=== PATIENT | female | born 1970 | race African-American/Black ===

== ENCOUNTER 2019-08-11 19:51 | Emergency (ER) | payer OTHER ==
[~2019-08-11] VITALS: Ht 167.6 cm; Wt 147.0 kg
[2019-08-11] MEDS ORDERED: METFORMIN HCL500 M3 PO (20:03)
[2019-08-11] MEDS ORDERED: LISINOPRIL2.5 MG PO (20:03)
[2019-08-11] MEDS ORDERED: FUROSEMIDE 20 M20 MG PO (20:04)
[2019-08-11 20:33] LABS: URINE BILIRUBIN NEGATIVE (Negative); URINE BLOOD TRACE (Negative); URINE CLARITY CLEAR; URINE COLOR YELLOW; URINE GLUCOSE-RANDOM NEGATIVE (Negative); URINE KETONES NEGATIVE (Negative); URINE LEUKOCYTES-REFLEX NEGATIVE (Negative); URINE NITRITE-REFLEX NEGATIVE (Negative); URINE PROTEIN 2+ (Negative); URINE SPECIFIC GRAVITY 1.025 (1.005-1.030); URINE UROBILINOGEN 0.2 E.U./dl (0.2-1.0)
[2019-08-11 20:40] LABS: BACTERIA-REFLEX 1-9 Few /HPF (None Seen); CRYSTALS None Seen /LPF (None Seen); HYALINE CASTS 0-3 Few /LPF (None Seen); SQUAMOUS 0-3 Few /LPF (0-3); URINE RBC 0-2 Rare /HPF (0-2); URINE WBC-REFLEX 0-5 Rare /HPF (0-5)
[2019-08-11 20:46] LABS: ABSOLUTE EOSINOPHILS 0.1 thou/uL (0.0-0.7); ABSOLUTE LYMPHOCYTES 2.5 thou/uL (0.8-5.3); ABSOLUTE MONOCYTES 0.5 thou/uL (0.0-1.2); ABSOLUTE NEUTROPHILS 5.4 thou/uL (1.6-8.1); BASOPHILS 0.5 %; EOSINOPHILS 1.7 %; HEMOGLOBIN 12.6 gm/dL (12.0-15.0); LYMPHOCYTES 29.1 %; MCH 25.8 pg (26.0-34.0); MCHC 32.4 g/dL (28.0-37.0); MCV 79.7 fL (80.0-100.0); MONOCYTES 6.2 %; MPV 9.4 fl. (7.2-11.1); NUCLEATED RBCS 0 /100WBC; PLATELET COUNT* 215 thou/uL (150-400); POLYS 62.5 %; RBC 4.89 mil/uL (4.20-5.00); RDW-CV 15.4 % (10.5-14.5); WBC 8.6 thou/uL (4.0-11.0)
[2019-08-11 20:51] LABS: CALCIUM 9.7 mg/dL (8.5-10.1); CREATININE 1.6 mg/dL (0.6-1.3); POTASSIUM 4.1 mmol/L (3.5-5.1)
[2019-08-11 20:55] LABS: ALBUMIN 3.7 g/dL (3.4-5.0); TOTAL BILIRUBIN 0.5 mg/dL (<0.1-1.0)
[2019-08-11] MEDS ORDERED: HYDROCODON-ACE1 EAC7 PO (21:53)
[2019-08-11] MEDS ORDERED: ZOFRAN ODT4 MG PO (21:53)
[2019-08-11] MEDS ORDERED: TORADOL 10 MG T10 MG PO (21:53)
[2019-08-11 22:04] VITALS: BP 124/70
== END 2019-08-11 22:04 | disposition home or self-care (01) ==
LOC: M.ERS 19:51
PROVIDERS: Personal Emergency Response Attendant
DX: N23 Unspecified renal colic (principal); Z90.49 Acquired absence of other specified parts of digestive tract; Z98.890 Other specified postprocedural states; Z88.0 Allergy status to penicillin

== ENCOUNTER 2020-07-14 12:23 | Emergency (ER) | payer OTHER ==
[~2020-07-14] VITALS: Ht 167.6 cm; Wt 146.5 kg
[~2020-07-14 12:23] MED LIST: FUROSEMIDE 20 M20 MG PO; HYDROCODON-ACE1 EAC7 PO; LISINOPRIL2.5 MG PO; METFORMIN HCL500 M3 PO; TORADOL 10 MG T10 MG PO; ZOFRAN ODT4 MG PO
[2020-07-14] MEDS ORDERED: VOLTAREN GEL 1100 G1 TOP (13:38)
[2020-07-14] MEDS ORDERED: NORCO5 PO (13:38)
[2020-07-14 14:12] VITALS: BP 141/65
== END 2020-07-14 14:14 | disposition home or self-care (01) ==
LOC: M.ERS 12:23
DX: S92.244A Nondisplaced fracture of medial cuneiform of right foot, initial encounter for closed fracture (principal); Z90.49 Acquired absence of other specified parts of digestive tract; Z98.890 Other specified postprocedural states; Z79.899 Other long term (current) drug therapy; Z88.0 Allergy status to penicillin; X58.XXXA Exposure to other specified factors, initial encounter; Y93.89 Activity, other specified; Y92.89 Other specified places as the place of occurrence of the external cause; Y99.8 Other external cause status

== ENCOUNTER 2020-09-06 02:54 | Observation (INO) | payer OTHER ==
[~2020-09-06] VITALS: Ht 167.6 cm; Wt 156.5 kg
[~2020-09-06 02:54] MED LIST changes: -LISINOPRIL2.5 MG PO; +LISINOPRIL20 MG PO; +NORCO5 PO; +VOLTAREN GEL 1100 G1 TOP
[2020-09-06 02:59] VITALS: BP 154/91
[2020-09-06] MEDS ORDERED: LORATIDINE 10 M10 M1 PO (03:02)
[2020-09-06] MEDS ORDERED: VITAMIN D-40010 MCG (03:03)
[2020-09-06] MEDS ORDERED: PROTONIX 20 MG20 MG PO (03:05)
[2020-09-06 04:29] LABS: HEMATOCRIT 37.6 % (37.0-47.0); HEMOGLOBIN 12.3 gm/dL (12.0-15.0); MCH 26.2 pg (26.0-34.0); MCHC 32.6 g/dL (28.0-37.0); MCV 80.4 fL (80.0-100.0); MPV 8.7 fl. (7.2-11.1); RBC 4.68 mil/uL (4.20-5.00); RDW-CV 15.3 % (10.5-14.5); WBC 9.7 thou/uL (4.0-11.0)
[2020-09-06 04:41] LABS: CALCIUM 9.9 mg/dL (8.5-10.1); CREATININE 1.3 mg/dL (0.6-1.3); POTASSIUM 3.8 mmol/L (3.5-5.1)
[2020-09-06 04:47] LABS: ALBUMIN 3.5 g/dL (3.4-5.0); TOTAL BILIRUBIN 0.5 mg/dL (<0.1-1.0); TOTAL PROTEIN 8.5 g/dL (6.4-8.2)
[2020-09-06 07:54] VITALS: BP 146/72
[2020-09-06 08:00] VITALS: BP 146/72
--- NOTE | 2020-09-06 09:20 | EKG ---
[place] [address] ELECTROCARDIOGRAM REPORT Name: BRANDIEYONY Ch Room: [address]#: [id number] Admission: 09/06/20 Attend Phys: Polly Capellan MD Discharge: Date of : 68 Date of Service: 09/06/20 0432 Report #: [id number] THIS REPORT FOR: //name// [facility] ED Test Date: 2020-09-06 Test Time: 04:32:43 Pat Name: YONY DIEGO Department: Room: [facility] Gender: F Director Cloud Transformation: [facility] : 1970 Requested By: Lupe Livingston Order Number: [id number] MD: Fred Mejia Measurements Intervals Gates Rate: 101 P: 88 MT: 202 QRS: -12 QRSD: 120 T: 14 QT: 365 QTc: 474 Interpretive Statements Sinus tachycardia Borderline prolonged MT interval Incomplete left bundle branch block No previous ECG available for comparison Electronically Signed On 09-06-2020 9:20:24 CDT by Fred Mejia [email or web address] <ELECTRONICALLY SIGNED> By: Fred Mejia MD, [facility] 09/06/20 0920 0432 0432 Fred Mejia MD, [facility] /EPI
[2020-09-06 11:10] VITALS: BP 140/76
--- NOTE | 2020-09-06 18:24 | NUR ---
RECEIVED REPORT FROM DAMARIS VILLAREAL. PT ARRIVED ON UNIT AT 0800. ADMIT DONE. VS STABLE. IV INTACT RIGHT AC. HEART MONITOR ATTACHED AT SR/ST. PT UP ADLIB. MEDS GIVEN PER MAR. HOURLY ROUNDING PERFORMED. PT LYING IN BED. CALL LIGHT WITH IN REACH. WILL CONTINUE TO MONITOR.
[2020-09-07 00:35] VITALS: BP 133/70
[2020-09-07 05:46] VITALS: BP 130/70
--- NOTE | 2020-09-07 06:31 | NUR ---
NO ACUTE CHANGES THROUGHOUT SHIFT. SEE CHARTING FOR DETAILS. ALL ROUNDINGS COMPLETED, ALL NEEDS MET. FULL ASSESSMENT COMPLETED CHARTED. PERSONAL ITEMS AND CALL LIGHT IN REACH. BED LOCKED AND IN LOW POSITION.
[2020-09-07 08:00] VITALS: BP 118/67
--- NOTE | 2020-09-07 12:37 | NUR ---
Nutrition: Pt admitted with angioedema R/T VINCENT inhibitor. She stated her tongue is not swollen anymore and she can eat. She will put her dentures in for lunch. Pt was seen for high BMI. She stated she has prediabetes and showed interest in CHO control. She said she has lost 16# in 5 months as she is trying to stave off DM. We discussed CHO sources and non-CHO sources, CHO control, portions. Handouts, discussion and info provided. All questions answered today. Pt seems motivated to stay on CHO controlled diet at home. RD contact info provided as well. PMHx, labs, meds noted. Consider low risk. Food and nutrition-related knowledge deficit R/T DM diet AEB pt report of wanting info.
[2020-09-07] MEDS ORDERED: NORVASC5 MG PO (12:40)
--- NOTE | 2020-09-07 13:54 | NUR ---
CM S/W PT WHO STATED SHE LIVE ALONE. PT HAS NO DMES. PT DENIES HX WITH HH OR SNF. PT HAD BILLING QUESTIONS, SO CM PROVIDED PT W/BILLING DEPT TELEPHONE. PT IS ACTIVE AND INDEPENDENT WITH CARES. THERE ARE NO ANTICIPATED CM NEEDS.
[2020-09-07 15:26] VITALS: BP 118/67
--- NOTE | 2020-09-07 16:18 | NUR ---
RECEIVED REPORT AROUND 0715. ASSUMED CARE. VS AND ASSESSMENT CHARTED. IV INTACT RIGHT AC. HEART MONITOR ATTACHED AT SR/ST. MEDS GIVEN PER JUN. HOURLY ROUNDING PERFORMED. DISCHARGE ORDERS RECEIVED. DISCHARGE PACKET GIVEN TO PT. COMMUNICATED UNDERSTANDING. IV TAKEN OUT. HEART MONITOR OFF. PT LEFT UNIT VIA WHEELCHAIR WITH NURSING STAFF AND ALL BELONGINGS AT 1613.
== END 2020-09-07 16:10 | disposition home or self-care (01) ==
LOC: M.ERS 02:54 → M.2W 05:56 → M.TBA-ER 05:56 → M.2W 08:00
PROVIDERS: Personal Emergency Response Attendant; ADMIT Family Medicine; ATTEND Family Medicine
DX: T78.3XXA Angioneurotic edema, initial encounter (principal); Z20.822 Contact with and (suspected) exposure to COVID-19; I12.9 Hypertensive chronic kidney disease with stage 1 through stage 4 chronic kidney disease, or unspecified chronic kidney disease; N18.2 Chronic kidney disease, stage 2 (mild); R73.9 Hyperglycemia, unspecified; Z79.84 Long term (current) use of oral hypoglycemic drugs; Z79.899 Other long term (current) drug therapy

== ENCOUNTER → 2020-09-11 | Outpatient (CLI) | payer OTHER ==
[~2020-09-11] MED LIST changes: +LORATIDINE 10 M10 M1 PO; +NORVASC5 MG PO; +PROTONIX 20 MG20 MG PO; +VITAMIN D-40010 MCG
== END ==
LOC: M.ULTRA 13:30
PROVIDERS: ATTEND Orthopaedic Surgery
DX: R60.0 Localized edema (principal)